=== PATIENT | male | born 1985 | race Caucasian/White ===

== ENCOUNTER 2022-03-04 12:09 | Emergency (ER) | payer BC ==
[2022-03-04] MEDS ORDERED: HYDROCODONE/APAP 7.5/325 MG TAB ONE (13:01)
[2022-03-04] MEDS ORDERED: IBUPROFEN 400 MG TAB ONE ×2 (13:02→13:04)
--- NOTE | 2022-03-04 14:04 | RAD REPORT ---
EXAM DESCRIPTION: RAD - Elbow Right 3 View - 03/04/2022 1:26 pm CLINICAL HISTORY: puncture wound, site not specified COMPARISON: No comparisonsNo comparisonsNone. FINDINGS: No fracture is identified and no elevated posterior fat pad. There is no dislocation or pe riosteal reaction noted. No foreign body or other soft tissue abnormality. No other significant findi ng. IMPRESSION: Negative right elbow examination.
--- NOTE | 2022-03-04 14:16 | EDPHYS ---
Physician Documentation [facility] Name: Tine Hayward Age: 36 yrs Sex: Male : 1985 Arrival Date: 03/04/2022 Time: 12:12 Bed 10 Private MD: ED Physician Brian Mcduffie HPI: 03/04 12:50 This 36 yrs old Male presents to ER via Ambulatory with complaints of Arm Pain. cp 12:50 The patient or guardian complains of pain, that is acute. The complaints affect the cp right elbow. 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 cp 12:50 Treatment prior to arrival includes: no previous treatment. Associated signs and cp symptoms: Pertinent positives: pain, swelling, warmth, Pertinent negatives: decreased range of motion, fever, numbness. Severity of symptoms: in the emergency department the symptoms are unchanged, despite home interventions. Historical: - Allergies: 12:39 No Known Allergies; vg1 - Home Meds: 12:39 Lexapro Oral [Active]; Wellbutrin Oral [Active]; vg1 - PMHx: 12:39 Depressive disorder; vg1 - PSHx: 12:39 None; vg1 - Immunization history:: Client reports having NOT received the Covid vaccine. - Social history:: Smoking status: Patient denies any tobacco usage or history of. ROS: 12:55 Constitutional: Negative for body aches, chills, fever, poor PO intake. cp 12:55 Eyes: Negative for injury, pain, redness, and discharge. cp Exam: 13:00 Constitutional: The patient appears in no acute distress, alert, awake, non-toxic, well cp developed, well nourished, afebrile 13:00 Head/Face: Normocephalic, atraumatic. cp 13:00 Cardiovascular: Rate: normal, Rhythm: regular, Pulses: Pulses are 2+ in right radial artery. 13:00 Respiratory: the patient does not display signs of respiratory distress, Respirations: normal, no use of accessory muscles, no retractions, labored breathing, is not present, Breath sounds: are clear throughout, no decreased breath sounds, no stridor, no wheezing. 13:00 Musculoskeletal/extremity: Extremities: noted in the right elbow: area of tenderness with mild swelling noted posterior elbow with increased skin warmth. no abscess noted. Vital Signs: 12:34 BP 125 / 74; Pulse 95; Resp 16; Temp 98.1; Pulse Ox 98% ; Weight 90.72 kg; Height 5 ft. vg1 4 in. (162.56 cm); Pain 7/10; 12:34 Body Mass Index 34.33 (90.72 kg, 162.56 cm) vg1 MDM: 12:44 Patient medically screened. cp 13:00 Differential diagnosis: cellulitis, abscess, septic joint. cp 14:15 Data reviewed: vital signs, nurses notes, radiologic studies, plain films. cp 14:15 Counseling: I had a detailed discussion with the patient and/or guardian regarding: the cp historical points, exam findings, and any diagnostic results supporting the discharge/admit diagnosis, radiology results, to return to the emergency department if symptoms worsen or persist or if there are any questions or concerns that arise at home. 03/04 12:46 Order name: XRAY Elbow RIGHT 3 view; Complete Time: 14:12 cp 03/04 14:12 Interpretation: Report reviewed. cp 03/04 14:04 Order name: Sling; Complete Time: 14:12 cp Administered Medications: 13:02 Drug: Ibuprofen 800 mg Route: PO; ss 14:21 Follow up: Response: No adverse reaction ss 13:02 Not Given (Patient Refused): Hydrocodone-Acetaminophen (7.5 mg-325 mg) 1 tabs PO once; ss RASS on ADMIN: Combtv4, Very Agttd3, Agttd2, Rstlss1, AlertClm0, Drwsy-1, Lt Sdtn-2, Mod Sdtn-3, Dp Sdtn-4, UnArsble-5 Disposition Summary: 03/04/22 14:15 Discharge Ordered Location: Home cp Problem: new cp Symptoms: have improved cp Condition: Stable cp Diagnosis - Puncture wound without foreign body of right elbow, initial encounter cp - Cellulitis of right upper limb cp Followup: cp - With: Private Physician - When: 1 - 2 days - Reason: Wound Recheck Discharge Instructions: - Discharge Summary Sheet cp - Cellulitis, Adult cp - Puncture Wound cp Forms: - Medication Reconciliation Form cp - Thank You Letter cp - Antibiotic Education cp - Prescription Opioid Use cp Prescriptions: - Bactrim DS 800-160 mg Oral Tablet - take 1 tablet by ORAL route every 12 hours for 10 days; 20 tablet; Refills: 0, cp Product Selection Permitted - Doxycycline Monohydrate 100 mg Oral Tablet - take 1 tablet by ORAL route every 12 hours for 10 days; 20 tablet; Refills: 0, cp Product Selection Permitted - Diclofenac Sodium 75 mg Oral Tablet Sustained Release - take 1 tablet by ORAL route 2 times per day; 30 tablet; Refills: 0, Product cp Selection Permitted Signatures: Dispatcher [employer] Pascale Lebron, ZANDER RN ss Filipe Kaye PA PA Mounika Jenkins RN RN vg1
--- NOTE | 2022-03-04 14:16 | ER ---
[facility] Name: Tien Hayward Age: 36 yrs Sex: Male : 1985 Arrival Date: 03/04/2022 Time: 12:12 Bed 10 Private MD: Diagnosis: Puncture wound without foreign body of right elbow, initial encounter;Cellulitis of right upper limb Presentation: 03/04 12:34 Chief complaint: Patient states: yesterday was out giving vaccines to livestock when vg1 was accidently poke with the needle to the Right elbow. Right elbow appears to be swollen and warm to touch. States the vaccine was Bovine Rhinotracheitis-Virus Diarrhea-Parainfluenza 3- Respiratory Syncytial Virus Vaccine. Coronavirus screen: Vaccine status: Patient reports being unvaccinated. Client denies travel out of the [place] in the last 14 days. Ebola Screen: Patient denies exposure to infectious person. Patient denies travel to an Ebola-affected area in the 21 days before illness onset. Initial Sepsis Screen: Does the patient meet any 2 criteria? No. Patient's initial sepsis screen is negative. Does the patient have a suspected source of infection? No. Patient's initial sepsis screen is negative. Risk Assessment: Do you want to hurt yourself or someone else? Patient reports no desire to harm self or others. Onset of symptoms was March 03, 2022. 12:34 Method Of Arrival: Ambulatory vg1 12:34 Acuity: WHIT 3 vg1 Triage Assessment: 12:39 General: Appears uncomfortable, Behavior is calm, cooperative. Pain: Complains of pain vg1 in right arm Pain currently is 7 out of 10 on a pain scale. Historical: - Allergies: 12:39 No Known Allergies; vg1 - Home Meds: 12:39 Lexapro Oral [Active]; Wellbutrin Oral [Active]; vg1 - PMHx: 12:39 Depressive disorder; vg1 - PSHx: 12:39 None; vg1 - Immunization history:: Client reports having NOT received the Covid vaccine. - Social history:: Smoking status: Patient denies any tobacco usage or history of. Screenin:42 Abuse screen: Denies threats or abuse. Denies injuries from another. Nutritional ss screening: No deficits noted. Tuberculosis screening: Never had TB. Fall Risk None identified. Assessment: 13:42 General: Appears in no apparent distress. comfortable, Behavior is calm, cooperative. ss General: Denies fever, feeling ill. Pain: Complains of pain in right elbow Pain currently is 7 out of 10 on a pain scale. Quality of pain is described as tender. Neuro: Level of Consciousness is awake, alert, obeys commands, Oriented to person, place, time, situation. Cardiovascular: Capillary refill < 3 seconds is brisk in bilateral fingers. Respiratory: Airway is patent Respiratory effort is even, unlabored, Respiratory pattern is regular, symmetrical. GI: No signs and/or symptoms were reported involving the gastrointestinal system. EENT: Nares are clear Oral mucosa is moist. Derm: Skin is intact, is healthy with good turgor, Skin is dry, Skin is pink, warm \T\ dry. normal. Vital Signs: 12:34 BP 125 / 74; Pulse 95; Resp 16; Temp 98.1; Pulse Ox 98% ; Weight 90.72 kg; Height 5 ft. vg1 4 in. (162.56 cm); Pain 7/10; 12:34 Body Mass Index 34.33 (90.72 kg, 162.56 cm) vg1 ED Course: 12:12 Patient arrived in ED. ds1 12:27 Filipe Kaye PA is PHCP. cp 12:27 Brian Mcduffie MD is Attending Physician. cp 12:39 Triage completed. vg1 12:39 Arm band placed on. vg1 12:46 Pascale Whitt, RN is Primary Nurse. ss 13:02 XRAY Elbow RIGHT 3 view Sent. ss 13:28 XRAY Elbow RIGHT 3 view In Process Unspecified. EDMS 13:42 Patient has correct armband on for positive identification. Bed in low position. Call ss light in reach. 14:22 No provider procedures requiring assistance completed. Patient did not have IV access ss during this emergency room visit. Administered Medications: 13:02 Drug: Ibuprofen 800 mg Route: PO; ss 14:21 Follow up: Response: No adverse reaction ss 13:02 Not Given (Patient Refused): Hydrocodone-Acetaminophen (7.5 mg-325 mg) 1 tabs PO once; ss RASS on ADMIN: Combtv4, Very Agttd3, Agttd2, Rstlss1, AlertClm0, Drwsy-1, Lt Sdtn-2, Mod Sdtn-3, Dp Sdtn-4, UnArsble-5 Outcome: 14:15 Discharge ordered by . martín 14:22 Discharged to home ambulatory. ss 14:22 Condition: good 14:22 Discharge instructions given to patient, significant other, Instructed on discharge instructions, follow up and referral plans. medication usage, Demonstrated understanding of instructions, follow-up care, medications, Prescriptions given X 3. 14:24 Patient left the ED. ss Signatures: Dispatcher [facility] Hunter Beena ds1 Pascale Whitt, RN RN ss Filipe Kaye PA PA cp Garcia, Victoria, RN RN vg1 Corrections: (The following items were deleted from the chart) 12:40 12:34 Acuity: WHIT 3 vg1 vg1 12:41 12:34 Acuity: WHIT 4 vg1 vg1
[2022-03-04 14:29] VITALS: BP 125/74; TEMP 98.1; O2SAT 98
== END 2022-03-04 14:24 | disposition home or self-care (01) ==
LOC: ER 12:09
DX: S51.031A Puncture wound without foreign body of right elbow, initial encounter (principal); W26.8XXA Contact with other sharp object(s), not elsewhere classified, initial encounter; Y93.89 Activity, other specified; Y92.89 Other specified places as the place of occurrence of the external cause; L03.113 Cellulitis of right upper limb; F32.A Depression, unspecified
CPT/HCPCS: 99283